=== PATIENT | male | born 2000 | race Two or more races ===

== ENCOUNTER 2024-08-30 21:48 | Emergency (ER) | payer OTHER, SELFPAY ==
[2024-08-30 21:50] VITALS: BP 121/81
[2024-08-30 22:10] VITALS: BMI 17.3
[2024-08-30 22:19] VITALS: BP 114/72
[2024-08-30 22:25] LABS: % Basophils 0.5 % (0-2); % Eosinophils 0.9 % (0-6); % Immature Granulocytes 0.2 % (0-0.5); % Lymphocytes 30.5 % (20.5-51.1); % Monocytes 7.5 % (1.7-9.3); % Neutrophils 60.4 % (42.2-75.2); Absolute Eosinophils 0.1 10^3/uL (0-0.7); Absolute Lymphocytes 2.5 10^3/uL (1.2-3.4); Absolute Monocytes 0.6 10^3/uL (0.1-0.6); Absolute Neutrophils 4.9 10^3/uL (1.4-6.5); Hematocrit 41.7 % (39.0-52.0); Hemoglobin 13.6 g/dL (13.0-18.0); Mean Corp Hgb Conc. 32.6 g/dL (33.0-37.0); Mean Corpuscular Hgb 27.8 pg (27.0-31.0); Mean Corpuscular Volume 85.1 fL (80.0-94.0); Mean Platelet Volume 9.3 fL (7.4-10.4); Nucleated Red Blood Cells % 0 % (-); Platelet Count 213 10^3/uL (130-400); Red Cell Dist. Width 12.4 % (11.5-14.5); White Blood Cell Count 8.1 10^3/uL (4.8-10.8)
[2024-08-30 22:40] LABS: ALT (SGPT) 23 U/L (0-50); AST (SGOT) 29 U/L (17-59); Albumin 5.1 g/dl (3.5-5.0); Alkaline Phosphatase 63 U/L (38-126); Blood Urea Nitrogen 17 mg/dl (9-20); Calcium 9.6 mg/dl (8.4-10.2); Carbon Dioxide 26 mmol/L (22-30); Chloride 109 mmol/L (98-107); Estimated Creatinine Clearance 103 ml/min; Glucose 88 mg/dl (70-99); Sodium 143 mmol/L (135-145); Total Bilirubin 0.2 mg/dl (0.2-1.3); Total Protein 7.8 g/dl (6.3-8.2); eGFR > 60.00
[2024-08-30 23:00] VITALS: BP 114/73
[2024-08-30 23:17] LABS: Urine Albumin Negative (Neg - Trace); Urine Bilirubin Negative (Negative); Urine Character Clear (Clear); Urine Color Yellow; Urine Glucose Negative (Negative); Urine Ketone Negative (Negative); Urine Leukocyte Negative (Negative); Urine Nitrite Negative (Negative); Urine Occult Blood Negative (Negative); Urine Urobilinogen Negative (Neg - 1+)
--- NOTE | 2024-08-30 23:34 | ED.MUSCINJ ---
HPI-Injury
General
Chief Complaint: Fall
Source: patient and family
Exam Limitations: none
Time Seen by Provider: 08/30/24 21:57
Nursing documentation reviewed up to this point in time: agreed with
History of Present Illness-Injury
Initial Injury comments:
Pleasant 24-year-old male presents with left-sided chest wall pain. He fell into a pool and suffered an abrasion on his left ribs. He also reports diffuse abdominal pain. Denies head injury or loss of consciousness. Reports no other injuries.
Review of Systems
Review of Systems
Allergies reviewed?: Yes
All Other Systems: ROS reviewed and negative except as documented in HPI and ROS
Constitutional: Reports no symptoms
EENT: Reports no symptoms
Respiratory: Reports no symptoms
Musculoskeletal: Reports joint pain
Psychiatric: Reports no symptoms
Musculoskeletal Injury Exam
Musculoskeletal Injury Exam
Left Ribs:
Pain with Movement?: Mild
Tender to palpation?: Mild
Soft tissue swelling?: None
External deformity and angulation?: None
Joint effusion?: None
Contusion?: None
Hematoma-local bleeding into tissue?: None
Strain- Sprain- Tear (Connective tissue injury)?: None
Crepitus with movement?: No
Joint instability?: No
Malalignment/deformity?: No
Distal skin color and temperature: normal-warm & good color
Phy Exam
General Physical Exam
General Presentation: well appearing and no apparent distress
General Skin: warm and dry
General Habitus: normal
General Mental: alert
General Hydration: appears well hydrated
ENT Exam
ENT Exam: EOMI, pharynx normal, neck supple and normocephalic
Eye Exam
Eye Exam: PERRL, cornea clear and conjunctiva normal
Cardiovascular Exam
Cardiovascular Exam: regular rate/rhythm, no edema, no murmur and normal peripheral pulses
Pulmonary Exam
Pulmonary Exam: lungs clear, no respiratory distress, no rales, no crackles, no rhonchi, no stridor, no wheezing and no cough
Gastrointestinal Exam
Gastrointestinal Exam: normal bowel sounds, non tender, soft, no organomegaly, no pulsatile mass and non distended
Neurological Exam
Neurological Exam: alert, oriented x3, no motor deficits and speech normal
Musculoskeletal Exam
Musculoskeletal Exam: full ROM and no edema
Skin Exam
Skin Exam: normal color, warm/dry, no rash, no petechia and other (Abrasion to lower ribs)
Psychiatric Exam
Psychiatric Exam: normal mood/affect
Injury Course
Orders/Labs/Results
Orders:
Orders
08/30/24 21:57
CT Chest/abd/pel W Iv Cont Urgent
Comment: combined to correct order
Reason For Exam: left trauma
08/30/24 22:17
Complete Blood Count/With Diff Urgent
Comprehensive Metabolic Panel Urgent
08/30/24 23:04
Urinalysis Reflex To Culture Urgent
Date Specimen was Collected: 08/30/24
Time Specimen was Collected: 23:02
08/30/24 23:27
Rx Incentive Spirometry [RESP] Urgent
Frequency: q1h while awake
Abnormal Lab Results
08/30/24
22:17
MCHC 32.6 L g/dL
(33.0-37.0)
Chloride 109 H mmol/L
(98-107)
Albumin 5.1 H g/dl
(3.5-5.0)
08/30/24 22:17
08/30/24 22:17
*Radiology
Radiology exam reviewed: radiology read reviewed
*Critical Care Note
Total Time (30-74mins, 75-104mins- exclusive of procedures): Not Applicable
ED Attending Note
-
Portions of this chart may have been created with voice recognition software.� Occasional wrong word or��sound alike� substitutions may have occurred due to the inherent limitations of voice recognition software.
Discharge Plan
Departure
Patient Disposition: Home (Routine Discharge)
Date of Disposition: 08/30/24
Time of Disposition: 23:36
Patient with high blood pressure during this ER visit?: No
Condition: Good
Discharge Problem:
Contusion of ribs
Instructions: Rib injury in adults, Skin Abrasions (DC), How to use an incentive spirometer
Prescriptions:
No Action
No Current Medications
0
Referrals:
Guillermo Hudson MD [Family Provider] -
Activity Restrictions/Additional Instructions:
Thank You for choosing [facility].
It was a pleasure meeting you and taking part in your care. We hope for your continued healing and wellness.
Please read discharge instructions in their entirety. However, they are for general education and may not describe your exact diagnosis at discharge. Information on your ER visit and medical conditions were discussed with you along with appropriate
follow up information...
If indicated, please take your medications as instructed and indicated on discharge paperwork.
Please schedule a follow up appointment as directed. Call to schedule an appointment
Please return to the emergency department with ANY change in, persisting, or worsening of symptoms. If any of your symptoms do not improve, or persist, or become more severe within 6-12 hours, please return to the emergency department for further
care.
Please return to the emergency department if you develop a headache, neck pain/stiffness, fever greater than 100.4F, chest pain, shortness of breath, persistent nausea, vomiting, slurred speech, difficulty walking, numbness/tingling, weakness, signs
of infection or any other symptoms that are worrisome to you.
If you have any questions or concerns please do not hesitate to call the Hospital at or E-mail me directly at [email or web address]
Interventions
Interventions:
*Risk Screen - Suicide Last Done: 08/30/24 21:50
*General Assessment Last Done: 08/30/24 21:50
*Neglect/Abuse Screening Last Done: 08/30/24 21:50
*ED- Fall Risk Assessment Last Done: 08/30/24 22:10
*ED COVID-19 Vaccine History Last Done: 08/30/24 22:10
ED-Musculoskeletal Assessment Last Done: 08/30/24 22:10
ED- Neurological Assessment Last Done: 08/30/24 22:10
ED-Skin Assessment Last Done: 08/30/24 22:10
Discharge Date and Time
Print Language: [email or web address]
[2024-08-30] MEDS: MOTRIN 600 MG PO (23:59)
== END 2024-08-31 00:01 | disposition home or self-care (01) ==
LOC: EMR 21:48
PROVIDERS: EMERGENCY PHYSICIAN Student in an Organized Health Care Education/Training Program; FAMILY PHYSICIAN Family Medicine
DX: S20.212A Contusion of left front wall of thorax, initial encounter (principal); R10.84 Generalized abdominal pain; S20.312A Abrasion of left front wall of thorax, initial encounter; W16.012A Fall into swimming pool striking water surface causing other injury, initial encounter
CPT/HCPCS: 99284; 71260; 74177; 80053; 81003; 85025; Q9967